=== PATIENT | female | born 2000 | race Caucasian/White ===

== ENCOUNTER 2024-01-24 10:21 | Outpatient (CLI) | payer BC, SELFPAY | END 2024-01-24 10:22 | disposition home or self-care (01) | LOC: NFLDREF 14:22 | PROVIDERS: PCP Family Medicine; Referring Provider Family Medicine; Visit Provider Nurse Practitioner | DX: N30.01 Acute cystitis with hematuria (principal); B95.7 Other staphylococcus as the cause of diseases classified elsewhere | CPT/HCPCS: 87086; 87186 ==

== ENCOUNTER 2025-01-28 10:46 | Outpatient (CLI) | payer BC, SELFPAY | END 2025-01-28 10:47 | disposition home or self-care (01) | LOC: NFLDREF 02-02 02:35 | PROVIDERS: PCP Family Medicine; Referring Provider Family Medicine; Visit Provider Physician Assistant Surgical | DX: N30.01 Acute cystitis with hematuria (principal); J22 Unspecified acute lower respiratory infection | CPT/HCPCS: 87086; 87186 ==

== ENCOUNTER 2025-02-11 09:21 | Outpatient (CLI) | payer BC, SELFPAY | END 2025-02-11 09:22 | disposition home or self-care (01) | LOC: NFLDREF 02-14 19:04 | PROVIDERS: PCP Family Medicine; Referring Provider Family Medicine | DX: N30.00 Acute cystitis without hematuria (principal) | CPT/HCPCS: 87086 ==

== ENCOUNTER 2025-03-14 12:51 | Outpatient (CLI) | payer BC, SELFPAY ==
[2025-03-14 18:55] LABS: Chlamydia DNA Amplified* NOT DETECTED (No Detected); GC DNA Amplified* NOT DETECTED (No Detected)
== END 2025-03-14 12:52 | disposition home or self-care (01) ==
LOC: NFLDUCREF 12:51
PROVIDERS: PCP Family Medicine; Visit Provider Nurse Practitioner Family
DX: Z11.3 Encounter for screening for infections with a predominantly sexual mode of transmission (principal); N89.8 Other specified noninflammatory disorders of vagina
CPT/HCPCS: 87086; 87491; 87591